=== PATIENT | male | born 2005 | race Caucasian/White ===

== ENCOUNTER 2023-07-12 05:24 | Emergency (ER) | payer BC, SELFPAY ==
[2023-07-12 05:27] VITALS: BP 113/76; PULSE 73; RESP 18; TEMP 36.7; O2SAT 96; BMI 25.1
--- NOTE | 2023-07-12 06:04 | ED_ITS ---
HPI - General Adult General Chief complaint: Frostbite Stated complaint: Numbness in 3 fingers Time Seen by Provider: 07/12/23 05:50 Source: patient Mode of arrival: ambulatory Limitations: no limitations History of Present Illness HPI narrative: 18-year-old male presents to the emergency department for evaluation of numbness in his left fingertips, 1 through 3. This is simply the pads of the finger tips and has been present for about the past 10 hours. He reports that was riding a parking pass out side, holding onto a metal clip board for approximately 10-15 minutes last night. Temperatures were hovering around 0?. He was not wearing gloves. He does not have any injury to the skin, blistering or movement difficulties. He states that after coming inside and warming up, he noticed that his finger tips were numb. Eventually he initiated a virtual visit with the tele health provider who told him that after a few hours if he still had some numbness in the fingertips, he should be re-evaluated. He has had no change in symptoms and therefore comes to the emergency department. He does not have loss of sensation to deep touch just superficial. No movement deficit, no pain, no redness to the skin. No injury to any other areas. No prior history of significant frostbite, vascular disease or anticoagulant use. Has not tried any other treatments other than rewarming the hand gently in room air for his symptoms. He states that his past medical history is benign, no major long-term health problems. ROS is notable for the neurological symptoms as described above, denies any other muscular, joint, skin or neurological changes. Related Data Home Medications Medication Instructions Recorded Confirmed cefuroxime axetil 250 mg tablet 250 mg PO BID 07/12/23 07/12/23 tretinoin 07/12/23 Allergies Allergy/AdvReac Type Severity Reaction Status Date / Time No Known Drug Allergies Allergy Verified 07/12/23 05:34 Exam Const: Vital Signs, click to edit/add: Vital Signs - 24 hr 07/12/23 05:27 Temperature 98.0 F Pulse Rate [Left P ulse Oximeter] 73 Respiratory Rate 18 Blood Pressure [Ri ght Upper Arm] 113/76 Pulse Oximetry 96 Oxygen Delivery Me thod Room Air Documenting provider has reviewed patient's vital signs: yes Common normals: no apparent distress and alert General appearance: cooperative, comfortable and well kempt Orientation/consciousness: Yes awake HENMT: Face and sinus: normal facial exam Other: Normal appearing lips, no cyanosis. Moist membranes. Eye: General eye: normal appearance of both eyes Resp: Common normals: normal respiratory effort Effort & inspection: able to speak in complete sentences Cardio: Other: Regular rate and rhythm when palpated through radial pulse on left side. Extremity: Other: Both hands and wrists grossly normal to inspection. Both wrists have normal range of motion and radial pulses. All fingers have normal abduction adduction flexion and extension. Attention is then focused on finger tips 133 on the left side which are symptomatic. He has normal sensation fine and deep touch to the dorsum of the fingers and the palmar aspect at the 1st and 2nd phalanx area. He has reported decreased sensation to the pads of the finger tips of 133 only. There is no visible change in the skin. Capillary refill is less than 1 second. Deep touch is normal. The nails appear normal. Neuro: Sensorium/orientation: awake and alert Motor exam: no tremor noted and no movement abnormalities noted Psych: Appearance: well kempt Activity/motor behavior: appropriate eye contact Insight: insight good Judgement: judgment good Skin: Common normals: no rashes or lesions noted General skin exam: no rashes or lesions noted Course Course ED Course: Counseled patient on mild thermal injury. It seems confined to the epidermal layer, as he has no signs of blistering or significant skin injury. Capillary refill is appropriate. There are no signs of motor damage. Unfortunately, I think the timeline he was previously given was too aggressive at how long it will take sensory nerves to recover from this thermal injury. I would typically estimate 3-5 days but may take up to 2 weeks. I do not see any signs of deeper thermal injury but counseled patient on use of Vaseline, antibiotic ointment if these occur. There are no interventions that will change the course of his injury at this time. Stressed the importance of cold protection, gloves, getting out of the severe cold. He reports that he is from [place] and is familiar with this. He has no further questions. Vital Signs Vital signs: Initial Vital Signs Temperature 98.0 F 07/12/23 05:27 Temperature Source Temporal Artery Scan 07/12/23 05:27 Pulse Rate 73 07/12/23 05:27 Pulse Rhythm Regular 07/12/23 05:27 Respiratory Rate 18 07/12/23 05:27 Blood Pressure 113/76 07/12/23 05:27 Blood Pressure Mean 88 07/12/23 05:27 Blood Pressure Position Sitting 07/12/23 05:27 Pulse Oximetry 96 07/12/23 05:27 Oxygen Delivery Method Room Air 07/12/23 05:27 Vital Signs Temperature 98.0 F 07/12/23 05:27 Pulse Rate 73 07/12/23 05:27 Respiratory Rate 18 07/12/23 05:27 Blood Pressure 113/76 07/12/23 05:27 Pulse Oximetry 96 07/12/23 05:27 Oxygen Delivery Method Room Air 07/12/23 05:27 Temperature 98.0 F 07/12/23 05:27 Pulse Rate 73 07/12/23 05:27 Respiratory Rate 18 07/12/23 05:27 Blood Pressure 113/76 07/12/23 05:27 Pulse Oximetry 96 07/12/23 05:27 Oxygen Delivery Method Room Air 07/12/23 05:27 Discharge Plan Discharge Clinical Impression: Thermal injury Patient Disposition: Home, Self-Care Condition: Stable Instructions: Frostbite (ED) Additional Instructions: As we discussed, you do have a mild case of cold induced injury to the finger tips but thankfully not full frostbite. Years appears to only affect the outer layer of skin and sensory nerves. There does not seem to be deeper injury to the deeper layers of skin, motor nerves, blood vessels or other structures. I am not surprised to hear that you still have some numbness. This tends to last on average about 5 days but can last up to a couple of weeks. There is no treatment for this other than removal of exposure to the severe cold which you did rather quickly. I do not expect the finger tips to blister, but if they do apply Vaseline or antibiotic ointment and cover with a Band-Aid. Be mindful when you are touching objects that you may not be able to accurately feel if they are very hot or cold. As this injury heals, you may have a bit of hypersensitivity to touch, hot or cold or some mild tenderness. This will be temporary and resolve in time. Please try to wear gloves and get out of the cold as soon as your feasibly able when the temperatures are this cold. Activity Level: No Restrictions Discharge Diet: Regular Prescriptions: No Action cefuroxime axetil 250 mg tablet 250 mg PO BID tretinoin Stand Alone Forms: [employer] Info Instructions
== END 2023-07-12 06:14 | disposition home or self-care (01) ==
LOC: ED 06:09
PROVIDERS: Emergency Provider Family Medicine
DX: T33.532A Superficial frostbite of left finger(s), initial encounter (principal)
CPT/HCPCS: 99282